=== PATIENT | female | born 2000 | race Caucasian/White ===

== ENCOUNTER → 2019-11-13 | Outpatient (CLI) | payer OTHER | LOC: COL.RAD 12:36 | DX: I71.00 Dissection of unspecified site of aorta (principal); R55 Syncope and collapse | CPT/HCPCS: Q9967 ==

== ENCOUNTER → 2020-02-16 | Outpatient (CLI) | payer OTHER | LOC: ZCOL.LAB 16:07 | DX: R05 Cough (principal); Z20.828 Contact with and (suspected) exposure to other viral communicable diseases ==

== ENCOUNTER → 2020-02-23 | Outpatient (CLI) | payer OTHER | LOC: COL.RAD 09:36 | DX: R55 Syncope and collapse (principal) | CPT/HCPCS: A9585 ==

== ENCOUNTER → 2020-03-15 | Outpatient (CLI) | payer OTHER | LOC: COL.CARD 13:00 | DX: R55 Syncope and collapse (principal) ==